=== PATIENT | female | born 1965 | race African-American/Black ===

== ENCOUNTER 2024-01-10 17:28 | Emergency (ER) | payer BC, SELFPAY ==
[2024-01-10 17:39] VITALS: BP 131/83; PULSE 71; RESP 18; TEMP 36.8; O2SAT 97; BMI 44.8
--- NOTE | 2024-01-10 17:55 | CT_ITS ---
Patient: AVINASH STEPHENS Facility:?[facility] Patient ID:?[id number] Site Patient ID:?[id number]. Site :?[id number] Study:?CT-Facial w/o-01/10/2024 6:06:48 PM Ordering Physician:Krystle You Final Report: Indication: Fall, pain/swelling of the left cheek and jaw Technique: Noncontrast CT of the facial bones. Please note that all CT scans at this facility use dose modulation, iterative reconstruction, and/or weight-based dosing when appropriate to reduce radiation dose to as low as reasonably achievable. Comparison: None available Findings: Intracranial contents: Mildly enlarged sella turcica measuring 14 mm in anteroposterior dimension. No osseous erosion or destruction. Fluid attenuation within the sella turcica. Otherwise unremarkable. Facial bones: No facial bone fracture identified. The temporomandibular joints are well aligned. Mandible and maxilla are unremarkable. Nasal bones are intact. Paranasal sinuses mucosal thickening of the right maxillary sinus. Otherwise clear. Mastoid air cells are clear. Soft tissues: Mild subcutaneous fat stranding within the left pre maxillary soft tissues. No organized fluid collection. No subcutaneous emphysema. Salivary glands are unremarkable. Scattered subcentimeter cervical lymph nodes. Mild atherosclerotic carotid bulb calcifications. Impression: 1. Mild left pre maxillary subcutaneous fat stranding without facial bone fracture identified. 2. Mildly enlarged sella turcica with internal fluid attenuation, incompletely evaluated. Differential considerations include but not limited to empty sella/idiopathic intracranial hypertension, Rathke`s cleft cyst. Consider nonemergent MRI as clinically indicated. Please note that all CT scans at this facility use dose modulation, iterative reconstruction, and/or weight-based dosing when appropriate to reduce radiation dose to as low as reasonably achievable. Dictated by Wendy Leiva MD @ 01/10/2024 6:57:12 PM Signed by:?Wendy Leiva MD @01/10/2024 6:57:12 PM (Electronic Signature)
--- NOTE | 2024-01-10 17:55 | XR_ITS ---
Patient: AVINASH STEPHENS Facility:?[facility] Patient ID:?[id number] Site Patient ID:?[id number]. Site :?[id number] Study:?XRay-Chest 2 view-01/10/2024 6:10:37 PM Ordering Physician:Krystle You Final Report: Indication: Fall, bruised right chest Technique: Two views of the chest Comparison: None Findings: Normal cardiomediastinal silhouette and pulmonary vasculature. Lungs are well inflated and clear. No focal consolidation, pleural effusion, or pneumothorax. No displaced fracture visualized. Impression: No acute cardiopulmonary abnormality identified. Dictated by Wendy Leiva MD @ 01/10/2024 6:59:24 PM Signed by:?Wendy Leiva MD @01/10/2024 6:59:24 PM (Electronic Signature)
--- NOTE | 2024-01-10 17:56 | ED_ITS ---
HPI - General Adult General Date Seen: 01/10/24 Chief complaint: Fall/Minor Trauma Stated complaint: fall, chin and chest pain Time Seen by Provider: 01/10/24 17:31 Source: patient and RN notes reviewed Mode of arrival: ambulatory Limitations: no limitations History of Present Illness HPI narrative: Patient is a 58-year-old here for evaluation after a fall this morning around 9:00 a.m.. Presents to the ER around 6:00 p.m.. She landed striking her left chin and cheek on the ground. She notes pain and swelling in those areas. She does not have diplopia. She denies otherwise hitting her head, no loss of consciousness. No neck pain. She does have some bruising in her right chest which is sore. No shortness of breath. She also notes that her left elbow is bruised but she is able to move without difficulty and does not feel that there is any bony injury. She is not anticoagulated. No other complaints. Related Data Home Medications Medication Instructions Recorded Confirmed abilify injection IM 10/17/23 lamotrigine 200 mg tablet 200 mg PO QDAY 10/17/23 01/10/24 loratadine 10 mg tablet 10 mg PO QDAY 10/17/23 01/10/24 metformin 500 mg tablet 500 mg PO BIDWMEAL 10/17/23 01/10/24 olanzapine 7.5 mg tablet 7.5 mg PO QPM 10/17/23 01/10/24 oxybutynin chloride 15 mg 15 mg PO QDAY 10/17/23 01/10/24 tablet,extended release 24 hr atorvastatin 10 mg tablet 10 mg PO QPM 01/10/24 01/10/24 Allergies Allergy/AdvReac Type Severity Reaction Status Date / Time house dust Allergy Mild Cough Verified 01/10/24 17:46 mold Allergy Mild Cough Verified 01/10/24 17:46 pollen extracts Allergy Mild Cough Verified 01/10/24 17:46 Review of Systems Status of ROS: Reports: 6 or more systems reviewed and unremarkable except as noted in History and below [facility] Medical History Constipation ?K59.00 - Constipation, unspecified (ICD-10) Morbid obesity with BMI of 40.0-44.9, adult ?E66.01 - Morbid (severe) obesity due to excess calories (ICD-10) ?Z68.41 - Body mass index [BMI] 40.0-44.9, adult (ICD-10) Allergic rhinitis ?J30.9 - Allergic rhinitis, unspecified (ICD-10) Prolonged QT interval ?R94.31 - Abnormal electrocardiogram [ECG] [EKG] (ICD-10) GERD (gastroesophageal reflux disease) ?K21.9 - Gastro-esophageal reflux disease without esophagitis (ICD-10) Hyperlipidemia ?E78.5 - Hyperlipidemia, unspecified (ICD-10) Bipolar 1 disorder ?F31.9 - Bipolar disorder, unspecified (ICD-10) Surgical History History of exploratory laparotomy ?Z98.890 - Other specified postprocedural states (ICD-10) History of D&C (2012) ?Z98.890 - Other specified postprocedural states (ICD-10) History of electroconvulsive therapy (2005) ?Z98.890 - Other specified postprocedural states (ICD-10) Family History Mother Stroke, Onset Age: 62 Sister Breast cancer Social History Narrative: , 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 In general, an alert, well-appearing patient. Conversant and pleasant. Head: Normocephalic. She has some swelling and tenderness over the left anterior jaw as well as the left cheek. No obvious deformity. Eyes: Pupils are equal reactive. Extraocular movements are full. Conjunctivae are normal. No evidence of entrapment. ENT: Mucous membranes are moist. Dentition is intact. Neck: Supple without lymphadenopathy. Nontender to palpation. Heart: Regular rate and rhythm. No murmur or rub. Lungs: Clear bilaterally. No increased work of breathing, crackles or wheezes. Tenderness in the right anterior chest without crepitus or subcu air. Extremities: Well perfused. No edema. No calf tenderness. Pulses intact. Full range of motion of the left elbow is nonpainful. Neurologic: Patient is alert and oriented to person and place. Speech is fluent. Face is symmetric. Moves all extremities equally. Affect: Normal. Skin: Warm and dry. Well perfused. Const: Vital Signs, click to edit/add: Vital Signs - 24 hr 01/10/24 17:39 Temperature 98.3 F Pulse Rate [Pulse Oximeter] 71 Respiratory Rate 18 Blood Pressure [Ri ght Upper Arm] 131/83 Pulse Oximetry 97 Oxygen Delivery Me thod Room Air Documenting provider has reviewed patient's vital signs: yes Course Course ED Course: Will do a CT of the facial wound to rule out fracture, chest x-ray to rule out pulmonary injury. Vital signs and exam are reassuring. CT facial bones read by radiology as follows:Findings: Intracranial contents: Mildly enlarged sella turcica measuring 14 mm in anteroposterior dimension. No osseous erosion or destruction. Fluid attenuation within the sella turcica. Otherwise unremarkable. Facial bones: No facial bone fracture identified. The temporomandibular joints are well aligned. Mandible and maxilla are unremarkable. Nasal bones are intact. Paranasal sinuses mucosal thickening of the right maxillary sinus. Otherwise clear. Mastoid air cells are clear. Soft tissues: Mild subcutaneous fat stranding within the left pre maxillary soft tissues. No organized fluid collection. No subcutaneous emphysema. Salivary glands are unremarkable. Scattered subcentimeter cervical lymph nodes. Mild atherosclerotic carotid bulb calcifications. Impression: 1. Mild left pre maxillary subcutaneous fat stranding without facial bone fracture identified. 2. Mildly enlarged sella turcica with internal fluid attenuation, incompletely evaluated. Differential considerations include but not limited to empty sella/idiopathic intracranial hypertension, Rathke`s cleft cyst. Consider nonemergent MRI as clinically indicated. By my review, chest x-ray is negative. Final radiology read is negative. No evidence of rib fracture pneumothorax. I have discussed these findings with her. Recommend conservative therapy for facial and chest bruising including ice, ibuprofen and/or Tylenol. We discussed the sella turcica enlargement, I have asked her to follow up with primary care regarding that. Return any time for acute worsening, severe uncontrolled pain, vomiting, shortness of breath etcetera. Vital Signs Vital signs: Initial Vital Signs Temperature 98.3 F 01/10/24 17:39 Temperature Source Temporal Artery Scan 01/10/24 17:39 Pulse Rate 71 01/10/24 17:39 Respiratory Rate 18 01/10/24 17:39 Blood Pressure 131/83 01/10/24 17:39 Blood Pressure Mean 99 01/10/24 17:39 Blood Pressure Position Sitting 01/10/24 17:39 Pulse Oximetry 97 01/10/24 17:39 Oxygen Delivery Method Room Air 01/10/24 17:39 Vital Signs Temperature 98.3 F 01/10/24 17:39 Pulse Rate 71 01/10/24 17:39 Respiratory Rate 18 01/10/24 17:39 Blood Pressure 131/83 01/10/24 17:39 Pulse Oximetry 97 01/10/24 17:39 Oxygen Delivery Method Room Air 01/10/24 17:39 Temperature 98.3 F 01/10/24 17:39 Pulse Rate 71 01/10/24 17:39 Respiratory Rate 18 01/10/24 17:39 Blood Pressure 131/83 01/10/24 17:39 Pulse Oximetry 97 01/10/24 17:39 Oxygen Delivery Method Room Air 01/10/24 17:39 Discharge Plan Discharge Clinical Impression: Contusion of multiple sites Patient Disposition: Home, Self-Care Condition: Stable Instructions: Contusion in Adults (ED) Additional Instructions: Ibuprofen and/or Tylenol as needed, ice liberally over the next few days. No evidence of broken bones in your face or chest. You did have an incidental finding on your head CT you have a mildly enlarged sella turcica, which is a bony structure at the base of the skull. This can be genetic and of no importance, but may require further evaluation. I would like you to follow-up with your primary care clinic for further discussion of this. Return to the ER at any time for acute worsening such as difficulty breathing, vomiting, severe uncontrolled pain. Activity Level: No Restrictions Discharge Diet: Regular Prescriptions: No Action metformin 500 mg tablet 500 mg PO BIDWMEAL lamotrigine 200 mg tablet 200 mg PO QDAY olanzapine 7.5 mg tablet 7.5 mg PO QPM oxybutynin chloride 15 mg tablet extended release 24hr 15 mg PO QDAY loratadine 10 mg tablet 10 mg PO QDAY abilify injection IM atorvastatin 10 mg tablet 10 mg PO QPM Follow Up/Referrals: Luz Maria Cason MD [Primary Care Provider] - Stand Alone Forms: [facility] Info Instructions
== END 2024-01-10 19:09 | disposition home or self-care (01) ==
PROVIDERS: Emergency Provider Emergency Medicine; PCP Family Medicine
DX: S20.219A Contusion of unspecified front wall of thorax, initial encounter (principal); W19.XXXA Unspecified fall, initial encounter
CPT/HCPCS: 70486; 71046; 99284

== ENCOUNTER 2025-01-06 10:00 | Outpatient (RCR) | payer BC, SELFPAY | END 2025-05-06 23:59 | disposition home or self-care (01) | PROVIDERS: PCP Family Medicine | DX: N32.81 Overactive bladder (principal); Z51.89 Encounter for other specified aftercare | CPT/HCPCS: 97112; 97161; 97530; 97535 ==